=== PATIENT | male | born 1960 | race Two or more races ===

== ENCOUNTER 2024-04-04 15:40 | Emergency (ER) | payer OTHER ==
[~2024-04-04] VITALS: Ht 185.4 cm; Wt 106.6 kg
[2024-04-04 16:56] VITALS: BP 150/90; O2SAT 96
[2024-04-04] MEDS ORDERED: COZAAR25 MG PO (16:56)
[2024-04-04] MEDS ORDERED: FAMOTIDINE/PF 20 MG/2 ML VIAL IV ONE (17:30)
[2024-04-04] MEDS ORDERED: 0.9 % SODIUM CHLORIDE 500 ML IV ONE (17:30)
[2024-04-04] MEDS ORDERED: KETOROLAC TROMETHAMINE 30 MG VIAL IV ONE (17:30)
[2024-04-04 18:39] LABS: HEMATOCRIT 45.8 % (39.0-48.0); HEMOGLOBIN 15.2 g/dL (13-16.00); MEAN CELL VOLUME 87.5 fL (80.0-100.00); MEAN CORPUSCULAR HEMOGLOBIN 29.1 pg (27.00-32.0); MEAN CORPUSCULAR HGB CONC 33.3 g/dl (32.0-36.0); PLATELET COUNT 184 K/uL (150-450); RED BLOOD COUNT 5.24 M/uL (4.00-6.00); RED CELL DISTRIBUTION WIDTH 14.7 % (11.5-14.5)
[2024-04-04 19:04] LABS: ALBUMIN 3.8 gm/dL (3.4-5.0); BILIRUBIN TOTAL 1.21 mg/dL (0.3-1.2); CALCIUM 9.2 mg/dL (8.5-10.1); CREATININE SERUM 1.01 mg/dL (0.70-1.30); GFR 75.1; GLOBULINA 4.5 G/DL (2.4-3.5); POTASSIUM 4.21 mEq/L (3.5-5.1); TOTAL PROTEIN 8.3 gm/dL (6.4-8.2)
[2024-04-04 19:43] LABS: PH,URINE 5.5 (5.0-8.0); URINE APPEARANCE Clear; URINE BILIRRUBIN Negative (NEGATIVE); URINE BLOOD Negative; URINE COLOR Yellow; URINE GLUCOSE Negative (NEGATIVE); URINE LEUKOCYTE Negative; URINE NITRATE Negative; URINE PROTEIN Trace (NEGATIVE); URINE UROBILINOGEN 0.2 E.U./dl
[2024-04-04 19:46] LABS: URINE BACTERIA 13.4 uL (0.0-1933); URINE EPITHELIAL CELLS 14.4 uL (0.0-38.8); URINE RBC 46.1 uL (0.0-20.8); URINE WBC 8.7 uL (0.0-23.2)
[2024-04-04 19:47] LABS: URINE CAST 0.44 uL (0.0-1.40); URINE KETONE 40 (NEGATIVE)
[2024-04-04] MEDS ORDERED: AMOX-CLAV 875-1 EACH PO (21:45)
[2024-04-04] MEDS ORDERED: PIPERACILLIN/TAZOBACTAM SODIUM 3.375 GM VIAL IV ONE (21:45)
[2024-04-04] MEDS ORDERED: LEVSIN0.125 MG PO (21:45)
[2024-04-04] MEDS ORDERED: INTESTINEX680 M1 PO (21:45)
[2024-04-04] MEDS ORDERED: PRILOSEC OTC20 MG PO (21:45)
[2024-04-04] MEDS ORDERED: PEPCID AC20 MG PO (21:45)
== END 2024-04-04 22:44 ==
LOC: ER 15:42
PROVIDERS: General Practice
DX: K57.32 Diverticulitis of large intestine without perforation or abscess without bleeding (principal); N39.0 Urinary tract infection, site not specified; K40.90 Unilateral inguinal hernia, without obstruction or gangrene, not specified as recurrent; I10 Essential (primary) hypertension